=== PATIENT | female | born 1975 | race American Indian/Alaskan Native ===

== ENCOUNTER 2016-12-21 09:25 | Outpatient (CLI) | payer BC ==
--- NOTE | 2016-12-21 13:19 | Mammography Report ---
BILATERAL DIGITAL SCREENING MAMMOGRAM with CAD: 12/21/16 09:25:00 CLINICAL: Routine screening.Status post bilateral reduction mammoplasty. COMPARISON:12/06/15 FINDINGS: The breasts are almost entirely fatty.stable bilateral benign postsurgical scar and bilateral benign ossifications. Increased calcification of several oil cysts in the left breast. No new mass, architectural distortion or suspicious calcifications. IMPRESSION: No mammographic evidence of malignancy. BI-RADS CATEGORY: 2 -- Benign RECOMMENDATION: Routine mammographic screening in one year. COMMENT: Patient follow-up letters are generated by our [employer] application.
== END 2016-12-21 09:26 | disposition home or self-care (01) ==
LOC: SPVWC 09:25
PROVIDERS: ATTEND Family Medicine
DX: Z12.31 Encounter for screening mammogram for malignant neoplasm of breast (principal)
CPT/HCPCS: 77067; G0202

== ENCOUNTER 2018-01-24 13:30 | Outpatient (CLI) | payer BC, OTHER ==
--- NOTE | 2018-01-25 09:26 | Mammography Report ---
BILATERAL DIGITAL SCREENING MAMMOGRAM with CAD: 01/24/18 13:30:00 CLINICAL: Routine screening.Status post bilateral reduction mammoplasty. COMPARISON:12/21/16 FINDINGS: The breasts are almost entirely fatty.Stable left postsurgical scar with benign fat necrosis and benign calcifications. Minimal right breast scar. No mass, architectural distortion or suspicious calcifications. IMPRESSION: No mammographic evidence of malignancy. BI-RADS CATEGORY: 2 -- Benign RECOMMENDATION: Routine mammographic screening in one year. COMMENT: Patient follow-up letters are generated by our [employer] application.
== END 2018-01-24 13:31 | disposition home or self-care (01) ==
LOC: SPVWC 13:30
PROVIDERS: ATTEND Family Medicine
DX: Z12.31 Encounter for screening mammogram for malignant neoplasm of breast (principal)
CPT/HCPCS: 77067

== ENCOUNTER 2019-02-02 12:57 | Outpatient (CLI) | payer OTHER ==
--- NOTE | 2019-02-03 07:59 | Mammography Report ---
BILATERAL DIGITAL SCREENING MAMMOGRAM with CAD: 02/02/19 12:57:00 CLINICAL: Routine screening.Status post bilateral reduction mammoplasty. COMPARISON:01/24/18 FINDINGS: The breasts are almost entirely fatty.Stable left upper benign fat necrosis with several heavily calcified benign oil cysts. No new mass, architectural distortion or suspicious calcifications. IMPRESSION: No mammographic evidence of malignancy. BI-RADS CATEGORY: 2 -- Benign RECOMMENDATION: Routine mammographic screening in one year. COMMENT: Patient follow-up letters are generated by our [employer] application.
== END 2019-02-02 12:58 | disposition home or self-care (01) ==
LOC: SPVWC 12:57
PROVIDERS: ATTEND Family Medicine
DX: Z12.31 Encounter for screening mammogram for malignant neoplasm of breast (principal)
CPT/HCPCS: 77067

== ENCOUNTER 2020-03-08 08:13 | Outpatient (CLI) | payer OTHER ==
--- NOTE | 2020-03-08 11:48 | Mammography Report ---
DIGITAL SCREENING MAMMOGRAM WITH CAD, 03/08/2020 INDICATION: Routine screening mammography. TECHNIQUE: Digital bilateral 2D mammography was obtained in the craniocaudal and mediolateral obliq ue projections. This examination was interpreted with the benefit of Computer-Aided Detection analysi s. COMPARISON: 02/02/2019, 01/24/2018 FINDINGS: Breast Density: The breasts are almost entirely fatty. There is no evidence of dominant mass, suspicious calcifications or architectural distortion in eithe r breast. Generalized benign-appearing bilateral calcifications are stable. IMPRESSION: Follow up recommendation: Routine yearly BI-RADS Category 2: Benign. A "normal" or negative report should not discourage follow up or biopsy of a clinically significant f inding. A written summary of these findings will be mailed to the patient. The patient will be entered into a mammography reporting system which will generate a reminder letter for the patient's next appointmen t at the appropriate interval. The [employer] recommends yearly mammograms starting at age 40 and continuing as l pam as a woman is in good health. Breast MRI is recommended for women with an approximate 20-25% or greater lifetime risk of breast cancer, including women with a strong family history of breast or ova nohemi cancer or who have been treated for Hodgkin's disease. Signer Name: Van Herrera MD Signed: 03/08/2020 11:44 AM Workstation Name: [id number]
== END 2020-03-08 08:14 | disposition home or self-care (01) ==
LOC: SPVWC 08:13
PROVIDERS: ATTEND Family Medicine
DX: Z12.31 Encounter for screening mammogram for malignant neoplasm of breast (principal); N64.89 Other specified disorders of breast
CPT/HCPCS: 77067

== ENCOUNTER 2021-03-14 07:59 | Outpatient (CLI) | payer OTHER ==
--- NOTE | 2021-03-14 08:39 | Mammography Report ---
BILATERAL DIGITAL SCREENING MAMMOGRAM WITH CAD HISTORY: Screening mammogram, history of bilateral breast reduction surgery. TECHNIQUE: Routine digital mammographic imaging performed. This examination was interpreted with ethel [place] benefit of Computer-aided Detection analysis. COMPARISON: 03/08/2020, 02/02/2019, 01/24/2018, 12/21/2016. FINDINGS: Breast Density: predominantly fatty breast parenchymal pattern. Digital CC and MLO views demonstrate no mammographic evidence of malignancy. Stable reduction change s bilaterally with associated benign appearing fat necrosis type calcifications within the left breas t. IMPRESSION: No mammographic evidence of malignancy. If the clinical examination remains stable, recommend bilate ral mammogram in approximately one year. BIRADS 2: Benign Finding(s). FURTHER INFORMATION: According to the [employer], yearly mammograms are recommend ed starting at age 40 and continuing as long as a woman is in good health. Clinical Breast Exams shou ld be part of a periodic health exam-about every 3 years for women in their 20s and 30s and every yea r for women 40 and over. Breast self exam is an option for women starting in their 20s. Any breast ch bhargav noted on a breast self exam should be reported promptly to the patient's healthcare provider. Br east MRI is recommended for women with an approximately 20-25% or greater lifetime risk of breast can cer, including women with a strong family history of breast or ovarian cancer and women who have been treated for Hodgkin's disease. A negative Mammography report should not discourage follow up or biopsy of a clinically significant f inding and/or abnormality. Dense breast tissue may obscure small neoplasms. The patient will be entered into a reminder system with a target due date for the next screening mamm ogram. Signer Name: Roland Ellison MD Signed: 03/14/2021 8:34 AM Workstation Name: [id number]
== END 2021-03-14 08:00 | disposition home or self-care (01) ==
LOC: SPVWC 07:59
PROVIDERS: ATTEND Family Medicine
DX: Z12.31 Encounter for screening mammogram for malignant neoplasm of breast (principal)
CPT/HCPCS: 77067

== ENCOUNTER 2022-04-24 07:42 | Outpatient (CLI) | payer OTHER ==
--- NOTE | 2022-04-24 11:28 | Mammography Report ---
DIGITAL SCREENING MAMMOGRAM WITH CAD, 04/24/2022 CLINICAL INFORMATION / INDICATION: Routine screening mammography. SCREENING MAMMOGRAM TECHNIQUE: Digital bilateral 2D mammography was obtained in the craniocaudal and mediolateral obliqu e projections. This examination was interpreted with the benefit of Computer-Aided Detection analysis . COMPARISON: 03/14/2021. FINDINGS: Breast Density: The breasts are almost entirely fatty. No dominant mass, suspicious calcifications, or architectural distortion in either breast. Post reduction change left greater than right. IMPRESSION: No mammographic evidence of malignancy. Follow up recommendation: Routine yearly screening mammogram. BI-RADS Category 2: BENIGN. A "normal" or negative report should not discourage follow up or biopsy of a clinically significant f inding. A written summary of these findings will be mailed to the patient. The patient will be entered into a mammography reporting system which will generate a reminder letter for the patient's next appointmen t at the appropriate interval. The [employer] recommends yearly mammograms starting at age 40 and continuing as l pam as a woman is in good health. Breast MRI is recommended for women with an approximate 20-25% or greater lifetime risk of breast cancer, including women with a strong family history of breast or ova nohemi cancer or who have been treated for Hodgkin's disease. Signer Name: Jg Harvey MD Signed: 04/24/2022 11:23 AM Workstation Name: [id number]
== END 2022-04-24 07:43 | disposition home or self-care (01) ==
LOC: SPVWC 07:42
PROVIDERS: ATTEND Family Medicine
DX: Z12.31 Encounter for screening mammogram for malignant neoplasm of breast (principal)
CPT/HCPCS: 77067